=== PATIENT | female | born 1975 | race Caucasian/White ===

== ENCOUNTER → 2020-12-03 | Day surgery (SDC) | payer OTHER ==
[~2020-12-03] MED LIST: ALEVE220 M1 PO; CHANTIX0.5 MG PO; CLONIDINE HCL0.1 MG PO; LIDOCAINE 2%30 ML PO; MOTRIN600 MG PO; MUCINEX 600MG600 MG PO; PHENERGAN25 M1 PO; PRINIVIL10 MG PO; SUBOXONE 4 MG-1 EACH PO; SUBOXONE 8 MG-1 EACH PO; TRILOGY INHALER INH; VENTOLIN (2.5 MG/3 M INH; VENTOLIN HFA IN18 GM INH; WELLBUTRIN XL150 MG PO; ZOFRAN4 M1 PO
[2020-12-03 11:09] LABS: HCG (URINE) SCREEN NEGATIVE (NEGATIVE)
[2020-12-03 11:40] LABS: BASOPHIL 2.2 % (0-2); EOSINOPHIL 4.4 % (0-5); HGB 13.2 g/dl (12.5-16.0); MCH 30.1 pg (25.0-31.0); MCV 91.1 fL (78.0-100.0); MONOCYTE 8.2 % (0-12); NEUTROPHIL 52.9 % (41-80); NRBC 0; PLT 391 K/uL (150-400); RBC 4.39 M/uL (4.20-5.40); RDW 13.3 % (11.5-14.0); WBC 7.4 K/uL (4.0-10.5)
[2020-12-03 12:05] LABS: CREATININE 0.68 mg/dL (0.51-0.95); POTASSIUM 3.4 mmol/L (3.5-5.1)
== END | disposition home or self-care (01) ==
LOC: FAS 10:47
PROVIDERS: Oral & Maxillofacial Surgery
DX: K02.63 Dental caries on smooth surface penetrating into pulp (principal); K04.7 Periapical abscess without sinus; G43.909 Migraine, unspecified, not intractable, without status migrainosus; F41.9 Anxiety disorder, unspecified; E66.01 Morbid (severe) obesity due to excess calories; K58.9 Irritable bowel syndrome, unspecified; E04.9 Nontoxic goiter, unspecified; I10 Essential (primary) hypertension; E78.00 Pure hypercholesterolemia, unspecified; J43.9 Emphysema, unspecified; M19.90 Unspecified osteoarthritis, unspecified site; F17.210 Nicotine dependence, cigarettes, uncomplicated; F32.9 Major depressive disorder, single episode, unspecified; Z68.39 Body mass index [BMI] 39.0-39.9, adult; Z88.8 Allergy status to other drugs, medicaments and biological substances
CPT/HCPCS: 36415; 71045; 80048; 84703; 85025; 93005; J1100; J1885; J2250; J2405; J2704; J7120